=== PATIENT | male | born 1990 | race Two or more races ===

== ENCOUNTER 2024-04-14 15:09 | Emergency (ER) | payer MEDICAID ==
[~2024-04-14] VITALS: Ht 170.2 cm; Wt 84.1 kg
[2024-04-14 15:13] VITALS: BP 110/70; PULSE 62; RESP 18; TEMP 98.2; O2SAT 98
[2024-04-14] MEDS: ACETAMINOPHEN 500 MG TABLET PO ONE (15:51)
[2024-04-14] MEDS: IBUPROFEN 600 MG TABLET PO ONE (15:51)
[2024-04-14] MEDS: PERTUSS(ACELL),DIPH,TET/PF 0.5 ML SYRINGE [ADULT] IM. ONE (15:52)
[2024-04-14] MEDS ORDERED: BACI28.410 TP (21:15)
[2024-04-14] MEDS: BACITRACIN 0.9 GM PACKET OINTMENT TP ONE (21:19)
== END 2024-04-14 21:27 | disposition home or self-care (01) ==
LOC: EMS 15:09
DX: S01.01XA Laceration without foreign body of scalp, initial encounter (principal); W20.8XXA Other cause of strike by thrown, projected or falling object, initial encounter; Y93.89 Activity, other specified; Y92.89 Other specified places as the place of occurrence of the external cause; Y99.8 Other external cause status
CPT/HCPCS: 90471; 90715; 99284